=== PATIENT | male | born 2005 | race Caucasian/White ===

== ENCOUNTER 2024-07-26 09:02 | Emergency (ER) | payer OTHER ==
[~2024-07-26] VITALS: Ht 172.7 cm; Wt 83.3 kg
[2024-07-26 09:50] VITALS: TEMP 97
[2024-07-26] MEDS: diphenhydrAMINE 50MG/ML VIAL IV ONE (14:34)
[2024-07-26] MEDS: KETOROLAC 30 MG/ML 1ML VIAL IV ONE (14:34)
[2024-07-26] MEDS: METOCLOPRAMIDE INJ 10MG/2ML VIAL IV ONE (14:34)
[2024-07-26 14:49] LABS: BASO # 0.1 10^3/uL (0.0-0.2); BASO % 0.5 % (0.0-1.0); EOS % 0.3 % (0.0-3.0); HEMATOCRIT 44.6 % (42.0-52.0); LYMPH # 1.1 10^3/uL (1.5-5.0); LYMPH % 9.2 % (24.0-44.0); MEAN CORPUSCULAR HEMOGLOBIN 28.6 pg (27.0-33.0); MEAN CORPUSCULAR HGB CONC 33.6 g/dl (32.0-36.5); MEAN CORPUSCULAR VOLUME 85.1 fl (80.0-96.0); MONO # 0.5 10^3/uL (0.0-0.8); MONO % 4.5 % (2.0-8.0); NEUTROPHILS # 9.8 10^3/uL (1.5-8.5); NEUTROPHILS % 85.2 % (36.0-66.0); PLATELET COUNT, AUTOMATED 605 10^3/uL (150-450); RED BLOOD COUNT 5.24 10^6/uL (4.30-6.10); WHITE BLOOD COUNT 11.5 10^3/uL (4.0-10.0)
[2024-07-26 15:16] LABS: ALBUMIN 4.2 G/DL (3.2-5.2); ALKALINE PHOSPHATASE 89 U/L (40-129); ALT/SGPT 28 U/L (7.0-40); AST/SGOT 26 U/L (<34); BILIRUBIN,TOTAL 0.6 MG/DL (0.3-1.2); BLOOD UREA NITROGEN 13 MG/DL (9-23); C REACTIVE PROTEIN QUANTITATIV < 0.50 MG/DL (<1.0); CALCIUM LEVEL 9.8 MG/DL (8.5-10.1); CARBON DIOXIDE LEVEL 26 MMOL/L (20-31); CHLORIDE LEVEL 104 MMOL/L (98-107); CREATININE FOR GFR 0.87 MG/DL (0.70-1.30); GLUCOSE, FASTING 105 MG/DL (60-100); POTASSIUM SERUM 4.2 MMOL/L (3.5-5.1); SODIUM LEVEL 140 MMOL/L (136-145); TOTAL PROTEIN 7.8 G/DL (5.7-8.2)
[2024-07-26 15:39] LABS: ERYTHROCYTE SEDIMENTATION RATE 15 mm/hr (0-15)
[2024-07-26 15:54] VITALS: BP 132/76; O2SAT 99
[2024-07-26] MEDS: dexAMETHasone 20MG/5ML VIAL IV ONE (15:58)
== END 2024-07-26 16:03 | disposition home or self-care (01) ==
LOC: M ED 09:02
DX: G43.909 Migraine, unspecified, not intractable, without status migrainosus (principal)
CPT/HCPCS: 80053; 85025; 85652; 86140; 87486; 87581; 87633; 87798; 96374; 96375; 99284; J1100; J1200; J1885; J2765

== ENCOUNTER 2024-07-28 09:24 | Emergency (ER) | payer OTHER ==
[~2024-07-28] VITALS: Ht 172.7 cm; Wt 84.9 kg
[2024-07-28 09:29] VITALS: BP 129/76; TEMP 97.4; O2SAT 100
[2024-07-28] MEDS: diphenhydrAMINE 50MG/ML VIAL IV STA (12:32)
[2024-07-28] MEDS: PROCHLORPERAZINE 10MG 2ML VIAL IV ONE (12:35)
[2024-07-28 13:16] LABS: BASO # 0.1 10^3/uL (0.0-0.2); BASO % 0.4 % (0.0-1.0); EOS % 0.1 % (0.0-3.0); HEMATOCRIT 42.9 % (42.0-52.0); HEMOGLOBIN 14.5 g/dl (13.5-17.5); LYMPH # 1.2 10^3/uL (1.5-5.0); LYMPH % 8.5 % (24.0-44.0); MEAN CORPUSCULAR HEMOGLOBIN 28.6 pg (27.0-33.0); MEAN CORPUSCULAR HGB CONC 33.8 g/dl (32.0-36.5); MEAN CORPUSCULAR VOLUME 84.6 fl (80.0-96.0); MONO # 0.6 10^3/uL (0.0-0.8); MONO % 4.3 % (2.0-8.0); NEUTROPHILS # 11.9 10^3/uL (1.5-8.5); NEUTROPHILS % 86.1 % (36.0-66.0); PLATELET COUNT, AUTOMATED 620 10^3/uL (150-450); RED BLOOD COUNT 5.07 10^6/uL (4.30-6.10); WHITE BLOOD COUNT 13.8 10^3/uL (4.0-10.0)
[2024-07-28 13:29] LABS: INR 1.03; PROTHROMBIN TIME 13.8 SECONDS (12.5-14.5)
[2024-07-28 13:30] LABS: ERYTHROCYTE SEDIMENTATION RATE 8 mm/hr (0-15)
[2024-07-28 13:37] LABS: BLOOD UREA NITROGEN 17 MG/DL (9-23); C REACTIVE PROTEIN QUANTITATIV < 0.50 MG/DL (<1.0); CALCIUM LEVEL 9.6 MG/DL (8.5-10.1); CARBON DIOXIDE LEVEL 26 MMOL/L (20-31); CHLORIDE LEVEL 103 MMOL/L (98-107); CREATININE FOR GFR 0.89 MG/DL (0.70-1.30); GLUCOSE, FASTING 97 MG/DL (60-100); POTASSIUM SERUM 4.1 MMOL/L (3.5-5.1); SODIUM LEVEL 139 MMOL/L (136-145)
[2024-07-28] MEDS: NS (Normal Saline) 0.9% 1,000 ML IV ONE (13:50)
[2024-07-28] MEDS: dexAMETHasone 20MG/5ML VIAL IV ONE (13:50)
[2024-07-28] MEDS: KETOROLAC 30 MG/ML 1ML VIAL IV ONE (13:50)
[2024-07-28] MEDS ORDERED: MEDR4PAK PO (14:57)
== END 2024-07-28 15:06 | disposition home or self-care (01) ==
LOC: M ED 09:24
DX: G44.219 Episodic tension-type headache, not intractable (principal); Z79.899 Other long term (current) drug therapy
CPT/HCPCS: 70450; 80048; 85025; 85610; 85652; 86140; 87468; 87469; 87478; 87484; 87486; 87581; 87633; 87798; 87801; 96374; 96375; 99284; J0780; J1100; J1200; J1885